=== PATIENT | female | born 1995 | race Two or more races ===

== ENCOUNTER 2025-02-15 14:32 | Emergency (ER) | payer OTHER ==
[~2025-02-15] VITALS: Ht 160 cm; Wt 71.7 kg
[2025-02-15] MEDS ORDERED: KETOROLAC TROMETHAMINE 60 MG VIAL IM ONE ×2 (17:15→17:24)
[2025-02-15] MEDS ORDERED: PERCOCET 10-321 EACH PO (19:55)
== END 2025-02-15 20:24 | disposition home or self-care (01) ==
LOC: ER 15:32
DX: S92.352A Displaced fracture of fifth metatarsal bone, left foot, initial encounter for closed fracture (principal); S92.342A Displaced fracture of fourth metatarsal bone, left foot, initial encounter for closed fracture; W18.49XA Other slipping, tripping and stumbling without falling, initial encounter; Y93.89 Activity, other specified; Y92.413 State road as the place of occurrence of the external cause
CPT/HCPCS: 29515; 73630; 96372; 99283; J1885